=== PATIENT | female | born 1950 | race Caucasian/White ===

== ENCOUNTER 2022-07-29 09:32 | Outpatient (CLI) | payer MEDICARE, OTHER | END 2022-07-29 09:33 | disposition home or self-care (01) | LOC: CSHMAMMO 09:32 | PROVIDERS: ATTEND Family Medicine | DX: Z12.31 Encounter for screening mammogram for malignant neoplasm of breast (principal); Z13.820 Encounter for screening for osteoporosis; M85.851 Other specified disorders of bone density and structure, right thigh; M85.852 Other specified disorders of bone density and structure, left thigh; Z91.89 Other specified personal risk factors, not elsewhere classified | CPT/HCPCS: 77063; 77067; 77080 ==

== ENCOUNTER 2023-11-11 10:58 | Outpatient (CLI) | payer MEDICARE, OTHER | END 2023-11-11 10:59 | disposition home or self-care (01) | LOC: CSHMAMMO 10:58 | PROVIDERS: ATTEND Family Medicine | DX: Z12.31 Encounter for screening mammogram for malignant neoplasm of breast (principal) | CPT/HCPCS: 77063; 77067 ==

== ENCOUNTER 2024-03-14 09:34 | Outpatient (CLI) | payer MEDICARE, OTHER | END 2024-03-14 09:35 | disposition home or self-care (01) | LOC: CSHULT 09:34 | PROVIDERS: ATTEND Family Medicine | DX: R10.2 Pelvic and perineal pain (principal) | CPT/HCPCS: 76700; 76856 ==

== ENCOUNTER → 2025-06-15 | Emergency (ER) | payer MEDICARE, OTHER ==
[~2025-06-15] MED LIST: Aspirin Chewable 81 MG TAB ONE
[2025-06-15 11:42] LABS: #Basophils 0.04 10x3/uL (0.0-0.2); #Eosinophils 0.08 10x3/uL (0.0-0.5); #Monocytes 0.95 10x3/uL (0.0-1.1); #Neutrophils 6.48 10x3/uL (1.5-8.4); %Basophils 0.5 % (0.0-2.0); %Eosinophils 0.9 % (0.0-6.0); %Lymphocytes 14.0 % (18.0-47.0); %Monocytes 10.8 % (0.0-10.0); %Neutrophils 73.5 % (40.0-75.0); Hematocrit 38.1 % (34.9-44.5); Hemoglobin 12.6 g/dL (12.0-15.5); Mean Corpuscular Hemoglobin 30.9 pg (27.0-33.0); Mean Corpuscular Volume 93.4 fL (81.6-98.3); Platelet Count 233 10x3/uL (150-450); Red Blood Cell (RBC) Count 4.08 10x6/uL (3.90-5.03); White Blood Cell (WBC) Count 8.81 10x3/uL (3.5-10.5)
[2025-06-15 12:05] LABS: ALT (SGPT) 14 U/L (Less than 34); AST (SGOT) 22 U/L (11-34); Albumin 3.9 g/dL (3.1-4.5); Alkaline Phosphatase 67 U/L (40-110); Anion Gap 12 mmol/L (10-20); BUN (Urea Nitrogen) 13 mg/dL (9.8-20.1); Bilirubin, Total 0.5 mg/dL (0.3-1.2); Calc. Creatinine Clearance 0 mL/min (70-130); Calcium 9.3 mg/dL (7.8-10.44); Carbon Dioxide 25 mmol/L (23-31); Chloride 107 mmol/L (98-107); Globulin 3.5 g/dL (2.4-3.5); Glucose 100 mg/dL (83-110); Potassium 3.6 mmol/L (3.5-5.1); Sodium 140 mmol/L (136-145); Troponin I Less than 0.010 ng/mL (< 0.028)
[2025-06-15 13:10] LABS: Glucose, Urine (Dipstick) Normal (Negative); Leukocyte Negative (Negative); Protein, Urine (Dipstick) Negative (Neg-Trace); Specific Gravity, Urine 1.010 (1.005-1.030)
[2025-06-15 13:16] LABS: Bacteria/HPF None Seen HPF (None Seen); CAUTI Indications for Culture Acute Hematuria; RBC/HPF 0-3 HPF (0-3); WBC/HPF 0-3 HPF (0-3)
[2025-06-15 13:17] LABS: Urine Culture Reflex No No
== END ==
LOC: CSHERS 10:43
DX: R68.84 Jaw pain (principal); I10 Essential (primary) hypertension
CPT/HCPCS: 36415; 70486; 80053; 81001; 83880; 84484; 85025; 86140; 93005